=== PATIENT | female | born 1960 | race Caucasian/White ===

== ENCOUNTER 2023-09-27 10:47 | Inpatient (IN) | payer OTHER ==
[2023-09-27 11:06] VITALS: BMI 25.7
[2023-09-27] MEDS ORDERED: ACETAMINOPHEN 325 MG TABLET (FP) PO PRN (13:09)
[2023-09-27] MEDS ORDERED: IBUPROFEN 400 MG TABLET (FP) PO PRN (13:09)
[2023-09-27] MEDS ORDERED: BENZOCAINE/MENTHOL (CHLORASEPTIC ) LOZENGE MM PRN (13:09)
[2023-09-27] MEDS ORDERED: LOPERAMIDE HCL 2 MG CAPSULE PO PRN (13:09)
[2023-09-27] MEDS ORDERED: POLYETHYLENE GLYCOL (HEALTHYLAX) 3350 17 GM PACKET PO PRN (13:09)
[2023-09-27] MEDS ORDERED: BISMUTH SUBSALICYLATE 262 MG/15 ML BTL PO PRN (13:09)
[2023-09-27] MEDS ORDERED: MAGNESIUM HYDROX 2400MG/30ML ORAL SUSPENSION 30 ML CUP PO PRN (13:09)
[2023-09-27] MEDS ORDERED: LORazepam 1 MG TABLET PO PRN (13:09)
[2023-09-27] MEDS ORDERED: MAG HYDROX/AL HYDROX/SIMETH 30 ML UNIT-DOSE CUP PO PRN (13:09)
[2023-09-27] MEDS ORDERED: METHOCARBAMOL 500 MG TABLET PO PRN (13:09)
[2023-09-27] MEDS ORDERED: NALOXONE (NARCAN) HCL 4 MG/0.1 ML SPRAY NS PRN (13:09)
[2023-09-27] MEDS ORDERED: ONDANSETRON *ODT* 4 MG TABLET SL PRN (13:09)
[2023-09-27] MEDS ORDERED: BENZONATATE 200 MG CAPSULE PO PRN (13:09)
[2023-09-27] MEDS ORDERED: NALOXONE HCL 0.4 MG/ML VIAL IM PRN (13:09)
[2023-09-27] MEDS ORDERED: DICYCLOMINE HCL 10 MG CAPSULE PO PRN (13:09)
[2023-09-27] MEDS ORDERED: guaiFENesin 600 MG TABLET.ER (FP) PO PRN (13:09)
[2023-09-27] MEDS ORDERED: PRENATAL VITAMINS W/ FOLIC ACID TABLET (FP) PO ONE (13:23)
[2023-09-27] MEDS: PRENATAL VITAMINS W/ FOLIC ACID TABLET (FP) PO SCH (13:25)
[2023-09-27] MEDS: NICOTINE 14 MG/24 HOURS TOPICAL PATCH TD SCH (13:30)
[2023-09-27] MEDS: GABAPENTIN 400 MG CAPSULE PO SCH (13:43)
[2023-09-27] MEDS: LORazepam 2 MG TABLET PO SCH (17:17)
[2023-09-27] MEDS: MELATONIN 5 MG TABLETS PO SCH (22:29)
[2023-09-27] MEDS: THIAMINE 100 MG TABLET PO SCH (22:29)
[2023-09-27] MEDS: BACLOFEN 10 MG TABLET (FP) PO SCH (22:29)
[2023-09-28] MEDS: LEVOTHYROXINE NA 88 MCG TABLET (FP) PO SCH (06:24)
[2023-09-28] MEDS: NALTREXONE HCL 50 MG TABLET PO SCH (09:49)
[2023-09-28] MEDS: LIDOCAINE 5% TOPICAL PATCH TP SCH (09:49)
[2023-09-28 11:48] LABS: HEMOGLOBIN 12.3 GM/dL (10.7-15.3); MCH 32.1 pg (25.7-33.7); MCHC 34.3 g/dl (32.0-36.0); MEAN CELL VOLUME 93.6 fl (80-96); MEAN PLT VOLUME 7.5 fl (7.5-11.1); PLATELET COUNT 305 10^3/uL (134-434); RBC 3.84 M/mm3 (3.60-5.2); RDW 14.1 % (11.6-15.6)
[2023-09-28 13:00] LABS: SODIUM 143 mmol/L (136-145)
[2023-09-28 13:01] LABS: CHLORIDE 109 mmol/L (98-107); POTASSIUM 4.1 mmol/L (3.5-5.1)
[2023-09-28 13:02] LABS: CALCIUM 8.5 mg/dL (8.5-10.1)
[2023-09-28 13:03] LABS: ALBUMIN 3.2 g/dl (3.4-5.0); ANION GAP 8 mmol/L (4-13); CO2 26 mmol/L (21-32); GLUCOSE,RANDOM 99 mg/dL (74-106)
[2023-09-28 13:06] LABS: CREATININE 0.9 mg/dL (0.55-1.3); SGOT/AST 20 U/L (15-37); SGPT/ALT 17 U/L (13-61)
[2023-09-28 13:07] LABS: BILIRUBIN,TOTAL 0.4 mg/dL (0.2-1)
[2023-09-28 13:08] LABS: TOT PROT 5.9 g/dl (6.4-8.2)
[2023-09-28 13:09] LABS: ALK PHOS 98 U/L (45-117)
[2023-09-28] MEDS: LIDOCAINE PATCH REMOVAL MC SCH (22:16)
[2023-09-29] MEDS: LORazepam 1 MG TABLET PO SCH (05:55)
[2023-09-29] MEDS: SERTRALINE HCL 50 MG TABLET (FP) PO SCH (11:04)
[2023-09-30] MEDS ORDERED: LORazepam 0.5 MG TABLET PO PRN
[2023-09-30] MEDS: LORazepam 0.5 MG TABLET PO SCH (05:49)
[2023-09-30 21:07] VITALS: RESP 16
[2023-09-30] MEDS: IBUPROFEN 600 MG TABLET (FP) PO PRN (22:06)
[2023-10-01] MEDS: LORazepam 0.5 MG TABLET PO ONE (05:55)
[2023-10-01] MEDS: hydrOXYzine PAMOATE 25 MG CAPSULE (FP) PO PRN (22:27)
[2023-10-02 09:15] VITALS: BP 118/76; PULSE 72; TEMP 97.8
== END 2023-10-02 10:30 | disposition home or self-care (01) | DRG 775 ==
LOC: YASAS 10:47 → Y6N 13:08
PROVIDERS: ADMIT Allergy & Immunology; ATTEND Surgery
PROC: HZ2ZZZZ Detoxification Services for Substance Abuse Treatment (ICD-10-PCS; principal; 2023-09-27)
DX: F10.230 Alcohol dependence with withdrawal, uncomplicated (principal); F10.282 Alcohol dependence with alcohol-induced sleep disorder; F10.24 Alcohol dependence with alcohol-induced mood disorder; F17.213 Nicotine dependence, cigarettes, with withdrawal; F32.A Depression, unspecified; F41.9 Anxiety disorder, unspecified; E03.9 Hypothyroidism, unspecified; G89.29 Other chronic pain; Z86.69 Personal history of other diseases of the nervous system and sense organs; Z56.0 Unemployment, unspecified; Z59.00 Homelessness unspecified
CPT/HCPCS: 36415; 80053; 80305; 80307; 85027; 86780; 93005; 93010; J0475